=== PATIENT | female | born 1940 | race Native Hawaiian/Other Pacific Islander ===

== ENCOUNTER 2018-06-27 19:29 | Emergency (ER) | payer OTHER ==
[~2018-06-27] VITALS: Ht 160 cm; Wt 54.0 kg
[2018-06-27] MEDS ORDERED: HYDR10TA47A PO (19:50)
[2018-06-27] MEDS ORDERED: NEURONTIN 100M100 MG PO (19:51)
[2018-06-27 20:31] LABS: PLATELET COUNT 436 K/uL (152-353)
[2018-06-27 20:38] LABS: POTASSIUM 3.7 mmol/L (3.6-5.2); SODIUM 136 mmol/L (136-145)
[2018-06-27 21:33] VITALS: BP 160/75; TEMP 98
== END 2018-06-27 21:35 | disposition home or self-care (01) ==
LOC: ED 19:29
PROVIDERS: Internal Medicine
DX: R07.89 Other chest pain (principal); I10 Essential (primary) hypertension
CPT/HCPCS: 36415; 80053; 82550; 84484; 85027; 93005; 99283

== ENCOUNTER 2018-09-27 09:06 | Outpatient (CLI) | payer OTHER ==
[~2018-09-27 09:06] MED LIST: HYDR10TA47A PO; NEURONTIN 100M100 MG PO
== END 2018-09-27 19:21 | disposition home or self-care (01) ==
LOC: MRI 09:06
DX: M54.2 Cervicalgia (principal); M47.812 Spondylosis without myelopathy or radiculopathy, cervical region; M54.81 Occipital neuralgia; R20.8 Other disturbances of skin sensation

== ENCOUNTER 2019-01-31 15:57 | Emergency (ER) | payer OTHER ==
[~2019-01-31] VITALS: Ht 160 cm; Wt 53.5 kg
[2019-01-31 15:57] VITALS: TEMP 97.9
[2019-01-31 17:06] LABS: POTASSIUM 3.6 mmol/L (3.6-5.2); SODIUM 136 mmol/L (136-145)
[2019-01-31 17:44] LABS: PLATELET COUNT 523 K/uL (152-353)
[2019-01-31 22:09] VITALS: BP 152/83
== END 2019-01-31 22:30 | disposition short-term general hospital (02) ==
LOC: ED 16:32
PROVIDERS: Family Medicine
DX: S72.031A Displaced midcervical fracture of right femur, initial encounter for closed fracture (principal); R53.1 Weakness; W18.39XA Other fall on same level, initial encounter; Y92.511 Restaurant or cafe as the place of occurrence of the external cause
CPT/HCPCS: 80053; 84484; 85027; 93005; 96365; 96374; 96375; 96376; 99285; J2175; J2550

== ENCOUNTER 2019-02-19 10:47 | Inpatient (IN) | payer OTHER ==
[~2019-02-19] VITALS: Ht 160 cm; Wt 51.3 kg
[2019-02-19 11:40] VITALS: BP 125/74; TEMP 98.1
[2019-02-19 12:11] LABS: PLATELET COUNT 433 K/uL (152-353)
[2019-02-19 12:21] LABS: POTASSIUM 3.6 mmol/L (3.6-5.2)
[2019-02-19 13:32] VITALS: BP 125/74; TEMP 98.1; Ht 160 cm; Wt 51.3 kg
[2019-02-19] MEDS ORDERED: SERTRALINE HYDR50 MG PO (14:20)
[2019-02-19] MEDS ORDERED: LORA0.5T17 PO (14:20)
[2019-02-19] MEDS ORDERED: SIMV40TA57 (14:21)
[2019-02-19] MEDS ORDERED: AMLODIPINE BESYLATE PO (14:22)
[2019-02-19] MEDS ORDERED: ESTR0.45 PO (14:22)
[2019-02-19] MEDS ORDERED: GABA100C2 PO (14:24)
[2019-02-19] MEDS ORDERED: PANTOPRAZOLE 40MG TA PO (14:25)
[2019-02-19] MEDS ORDERED: ENOX40IN SC (14:26)
[2019-02-19 19:48] VITALS: BP 143/72; TEMP 98.3
[2019-02-20 20:00] VITALS: BP 116/62; TEMP 98.6
[2019-02-21 08:00] VITALS: BP 123/69; TEMP 98.6
[2019-02-21 20:00] VITALS: BP 129/61; TEMP 98.4
[2019-02-22 08:00] VITALS: BP 143/79; TEMP 97.6
[2019-02-22 20:00] VITALS: BP 126/62; TEMP 98.3
[2019-02-23 08:00] VITALS: BP 142/71; TEMP 97.7
[2019-02-23 20:00] VITALS: BP 121/60; TEMP 98.6
[2019-02-24 08:00] VITALS: BP 145/69; TEMP 97.9
[2019-02-24 20:00] VITALS: BP 135/67; TEMP 98.4
[2019-02-25 08:00] VITALS: BP 140/77; TEMP 97.6
[2019-02-25 19:56] VITALS: BP 136/63; TEMP 98.3
[2019-02-26 08:00] VITALS: BP 119/77; TEMP 97.5
[2019-02-26 20:00] VITALS: BP 133/60; TEMP 97.8
[2019-02-27 08:05] VITALS: BP 139/72; TEMP 98.2
[2019-02-27 20:00] VITALS: BP 127/55; TEMP 98.4
[2019-02-28 08:00] VITALS: BP 147/78; TEMP 97.7
[2019-02-28 20:00] VITALS: BP 129/63; TEMP 97.5
[2019-03-01 08:00] VITALS: BP 154/70; TEMP 97.8
[2019-03-01 19:56] VITALS: BP 137/69; TEMP 98
[2019-03-02 08:00] VITALS: BP 122/68; TEMP 98.2
[2019-03-02 20:00] VITALS: BP 106/55; TEMP 97.8
[2019-03-03 08:00] VITALS: BP 142/77; TEMP 97.6
[2019-03-03 20:29] VITALS: BP 137/67; TEMP 98.1
[2019-03-04 08:18] VITALS: BP 146/73; TEMP 97.6
[2019-03-04 20:00] VITALS: BP 143/69; TEMP 97.8
[2019-03-05 08:00] VITALS: BP 137/74; TEMP 97.8
[2019-03-05 20:00] VITALS: BP 109/68; TEMP 97.8
[2019-03-06 08:32] VITALS: BP 124/58; TEMP 98.1
[2019-03-06 20:00] VITALS: BP 134/65; TEMP 97.7
[2019-03-07 08:00] VITALS: BP 128/84; TEMP 97.7
[2019-03-07 20:00] VITALS: BP 117/60; TEMP 98.4
[2019-03-08 08:00] VITALS: BP 143/78; TEMP 98.7
[2019-03-08 20:00] VITALS: BP 121/65; TEMP 98.4
[2019-03-09 08:00] VITALS: BP 139/72; TEMP 97.9
[2019-03-09 20:27] VITALS: BP 134/61; TEMP 98.3
[2019-03-10 08:00] VITALS: BP 136/73; TEMP 97.6
[2019-03-10 20:00] VITALS: BP 123/57; TEMP 98.3
[2019-03-11 08:00] VITALS: BP 126/72; TEMP 98.1
== END 2019-03-11 15:00 | disposition home health service (06) | DRG 556 ==
LOC: MED/SURG 10:47
PROVIDERS: ADMIT Internal Medicine
DX: M62.81 Muscle weakness (generalized) (principal); Z47.89 Encounter for other orthopedic aftercare; R55 Syncope and collapse; I10 Essential (primary) hypertension; K21.9 Gastro-esophageal reflux disease without esophagitis; E78.49 Other hyperlipidemia; F32.89 Other specified depressive episodes; Z91.81 History of falling
CPT/HCPCS: 80053; 85027; 87081

== ENCOUNTER 2019-03-17 14:08 | Outpatient (CLI) | payer OTHER ==
[~2019-03-17 14:08] MED LIST changes: +AMLODIPINE BESYLATE PO; +ENOX40IN SC; +ESTR0.45 PO; +GABA100C2 PO; +LORA0.5T17 PO; +PANTOPRAZOLE 40MG TA PO; +SERTRALINE HYDR50 MG PO; +SIMV40TA57
== END 2019-03-17 21:10 | disposition home or self-care (01) ==
LOC: RAD 14:08
DX: M25.551 Pain in right hip (principal)

== ENCOUNTER 2021-07-08 08:26 | Outpatient (CLI) | payer OTHER ==
[2021-07-08 09:09] LABS: PLATELET COUNT 381 K/uL (152-353)
[2021-07-08 10:24] LABS: POTASSIUM 4.3 mmol/L (3.6-5.2)
== END 2021-07-08 21:34 | disposition home or self-care (01) ==
LOC: LABW 08:26
PROVIDERS: ATTEND Internal Medicine Medical Oncology
DX: C50.312 Malignant neoplasm of lower-inner quadrant of left female breast (principal); E55.9 Vitamin D deficiency, unspecified; M81.0 Age-related osteoporosis without current pathological fracture; R53.81 Other malaise
CPT/HCPCS: 36415; 80053; 82306; 85027; 86300

== ENCOUNTER 2022-02-13 13:03 | Emergency (ER) | payer OTHER ==
[~2022-02-13] VITALS: Ht 160 cm; Wt 51.3 kg
[2022-02-13 13:04] VITALS: TEMP 97.4
[2022-02-13 14:23] LABS: PLATELET COUNT 450 K/uL (152-353)
[2022-02-13 14:28] LABS: POTASSIUM 4.1 mmol/L (3.6-5.2)
[2022-02-13 16:04] VITALS: BP 148/80
== END 2022-02-13 16:37 | disposition home or self-care (01) ==
LOC: ED 13:03
PROVIDERS: Emergency Medicine Emergency Medical Services
DX: N39.0 Urinary tract infection, site not specified (principal)
CPT/HCPCS: 36415; 80053; 81000; 83735; 84484; 85027; 87077; 87086; 87088; 87186; 93005; 96360; 96365; 99284; J0696

== ENCOUNTER 2022-10-07 10:48 | Emergency (ER) | payer OTHER ==
[~2022-10-07] VITALS: Ht 160 cm; Wt 49.9 kg
[2022-10-07 10:55] VITALS: BP 101/52; TEMP 97.3
[2022-10-07 11:45] LABS: PLATELET COUNT 443 K/uL (152-353)
[2022-10-07 12:03] LABS: POTASSIUM 3.7 mmol/L (3.6-5.2)
== END 2022-10-07 12:44 | disposition home or self-care (01) ==
LOC: ED 10:48
PROVIDERS: Family Medicine
DX: K52.9 Noninfective gastroenteritis and colitis, unspecified (principal); R19.7 Diarrhea, unspecified
CPT/HCPCS: 80053; 85027; 96360; 96361; 99284; J2405